=== PATIENT | male | born 1970 | race African-American/Black ===

== ENCOUNTER 2024-08-23 08:05 | Emergency (ER) | payer OTHER ==
[~2024-08-23] VITALS: Ht 177.8 cm; Wt 68.1 kg
--- NOTE | 2024-08-23 08:52 | ED.PDOC ---
Back pain HPI HPI Comments 54 y.o male presents to the ED for a chief complaint of muscle pain associated with spasms. Patient reports he was doing some yard work with his son, was lifting bags of leaves when symptoms presented, localized to the lower back/flank, abdomen region. EMS reports giving patient 50mcg of Fentanyl and Zofran due to ongoing nausea and 4 episodes of non bloody emesis this morning. Patient reports having a normal bowel movement this morning.EMS reports patient is currently being treated with a left foot infection as well. He has a medical history of DM, HTN, and hyperlipidemia. Chief Complaint: Body Pain Time Seen by MD: 08:18 Reviewed Notes: Nurses Notes, Public Speaking Teacher Notes, Medications, Allergies Allergies: Coded Allergies: NO KNOWN ALLERGIES (Unverified , 08/23/24) Information Source: Patient, Emergency Med Personnel Mode of Arrival: EMS Timing: Hours Duration: Since onset Severity: Moderate Quality: Sharp Onset: Lifing History of: Other Past Medical History PAST MEDICAL HISTORY: DM, High Lipids, HTN Past Medical History (Other): left foot infection Surgical History: Denies all surgeries Family History Family History: Reviewed,noncontributory to illness Social History Smoker: Non-Smoker Alcohol: Denies ETOH Use Drugs: Denies Drug Use Lives In: Home Constitutional: denies: chills, diaphoresis, fatigue, fever, malaise, sweats, weakness, others EENTM: denies: blurred vision, double vision, ear bleeding, ear discharge, ear drainage, ear pain, ear ringing, eye pain, eye redness, hearing loss, mouth pain, mouth swelling, nasal discharge, nose bleeding, nose congestion, nose pain, photophobia, tearing, throat pain, throat swelling, voice changes, others Respiratory: denies: cough, hemoptysis, orthopnea, SOB at rest, shortness of breath, SOB with excertion, stridor, wheezing, others Cardiovascular: denies: chest pain, dizzy spells, diaphoresis, Dyspnea on exertion, edema, irregular heart beat, left arm pain, lightheadedness, palpitations, PND, syncope, others Gastrointestinal: denies: abdomen distended, abdominal pain, blood streaked bowels, constipated, diarrhea, dysphagia, difficulty swallowing, hematemesis, melena, nausea, poor appetite, poor fluid intake, rectal bleeding, rectal pain, vomiting, others Genitourinary: denies: burning, dysuria, flank pain, frequency, hematuria, incontinence, penile discharge, penile sore, pain, testicle pain, testicle swelling, urgency, others Neurological: denies: dizziness, fainting, headache, left sided numbness, left sided weakness, numbness, paresthesia, pre-existing deficit, right sided numbness, right sided weakness, seizure, speech problems, tingling, tremors, weakness, others Musculoskeletal: reports: muscle pain; denies: back pain, gout, joint pain, joint swelling, muscle stiffness, neck pain, others Integumetry: denies: bruises, change in color, change in hair/nails, dryness, laceration, lesions, lumps, rash, wounds, others Allergic/Immunocompromised: denies: Difficulty Healing, Frequent Infections, Hives, Itching, others Hematologic/Lymphatic: denies: anemia, blood clots, easy bleeding, easy bruising, swollen glands, others Endocrine: denies: excessive hunger, excessive sweating, excessive thirst, excessive urination, flushing, intolerance to cold, intolerance to heat, unexplained weight gain, unexplained weight loss, others Psychiatric: denies: anxiety, bipolar disorder, depression, hopeless, panic disorder, schizophrenia, sleepless, suicidal, others All Other Systems: Reviewed and Negative Physical Exam General Appearance: Mild Distress, Normal HEENT: Normal ENT Inspection, Pharynx Normal, TMs Normal Neck: Full Range of Motion, Non-Tender, Normal, Normal Inspection Respiratory: Chest Non-Tender, Lungs Clear, No Accessory Muscle Use, No Respiratory Distress, Normal Breath Sounds Cardiovascular: No Edema, No JVD, No Murmur, No Gallop, Normal Peripheral Pulses, Regular Rate/Rhythm Breast Exam: Deferred Gastrointestinal: Diffuse, Tenderness (mild ), Other (No rebound, no pulsating mass ) Genitalia: Deferred Pelvic: Deferred Rectal: Deferred Extremities: No calf tenderness, Normal capillary refill, Normal inspection, Normal range of motion, Non-tender, No pedal edema Musculoskeletal : Apperance: Normal Neurologic: Alert, procurement inspector II-XII nml as Tested, No Motor Deficits, Normal Affect, Normal Mood, No Sensory Deficits Cerebellar Function: Normal Reflexes: Normal Skin: Dry, Normal Color, Warm Lymphatic: No Adenopathy Was a procedure done? Was a procedure done?: No Back Pain Differential Dx Differential Diagnosis: Bowel Obstruction, Cholelithiasis, Fracture, Musculoskeletal Pain, Pancreatitis, Pyelonephritis, Urinary Tract Infection, Urolithiasis X-Ray, Labs, Meds, VS Vital Signs Date Time Temp Pulse Resp B/P (MAP) Pulse Ox O2 Delivery O2 Flow Rate FiO2 08/23/24 09:56 89 16 161/76 08/23/24 09:50 99.5 89 16 161/76 (104) 100 99.5 08/23/24 09:50 89 16 100 Nasal Cannula* 2 28 08/23/24 09:24 90 16 150/73 08/23/24 08:14 98.6 98 18 158/84 (108) 99 08/23/24 08:09 82 Lab Test 08/23/24 08:37 Range/Units White Blood Count 12.2 H 4.4-10.8 10^3/uL Red Blood Count 4.42 L 4.5-5.90 10^6/uL Hemoglobin 13.1 L 13.5-17.5 g/dL Hematocrit 39.5 L 41.0-53.0 % Mean Corpuscular Volume 89.4 80.0-100.0 fL Mean Corpuscular Hemoglobin 29.6 28.0-32.0 pg Mean Corpuscular Hemoglobin Concent 33.2 32.0-36.0 g/dL Red Cell Distribution Width 13.6 11.8-14.3 % Platelet Count 219 140-450 10^3/uL Mean Platelet Volume 8.9 6.9-10.8 fL Neutrophils (%) (Auto) 87.6 H 37.0-80.0 % Lymphocytes (%) (Auto) 6.0 L 10.0-50.0 % Monocytes (%) (Auto) 5.5 0.0-12.0 % Eosinophils (%) (Auto) 0.6 0.0-7.0 % Basophils (%) (Auto) 0.3 0.0-2.0 % Neutrophils # (Auto) 10.7 H 1.6-8.6 10 ^3/uL Lymphocytes # (Auto) 0.7 0.4-5.4 10 ^3/uL Monocytes # (Auto) 0.7 0-1.3 10 ^3/uL Eosinophils # (Auto) 0.1 0-0.8 10 ^3/uL Basophils # (Auto) 0 0-0.2 10 ^3/uL Nucleated Red Blood Cells 0.0 % Sodium Level 134 L 136-145 mmol/L Potassium Level 4.3 3.5-5.1 mmol/L Chloride Level 97 L 98-107 mmol/L Carbon Dioxide Level 25 20-31 mmol/L Anion Gap 12 5-15 Blood Urea Nitrogen 22 9-23 mg/dL Creatinine 1.80 H 0.700-1.30 mg/dL Glomerular Filtration Rate Calc 44 >90 mL/min BUN/Creatinine Ratio 12.2 10.0-20.0 Serum Glucose 370 H 74-106 mg/dL Calcium Level 9.4 8.7-10.4 mg/dL Total Bilirubin 6.1 H 0.2-1.0 mg/dL Aspartate Amino Transferase (AST) 53 H 13-40 U/L Alanine Aminotransferase (ALT) 158 H 7-40 U/L Alkaline Phosphatase 379 H 46-116 U/L Total Protein 7.7 5.7-8.2 g/dL Albumin 4.1 3.2-4.8 g/dL Lipase 34 12-53 U/L Current Medications Medications (Trade) Dose Ordered Sig/Pierre Route Start Time Stop Time Status Last Admin Morphine Sulfate 4 mg ONCE ONCE IV 08/23/24 08:30 08/23/24 08:31 DC 08/23/24 09:24 Ondansetron HCl (Zofran) 4 mg ONCE ONCE IV 08/23/24 08:30 08/23/24 08:31 DC 08/23/24 09:25 [place] [id number] Ph: [phone] DIAGNOSTIC IMAGING Diagnostic Imaging Report : [id number] Signed PATIENT: ALLI SALCIDO ACCT: [id number] UNIT: [id number] : 1970 LOC: ER ROOM / BED: / AGE / SEX: 54 / M ADM STATUS: REG ER SERVICE 1 ORDERING PHYSICIAN: ANNIE MACIAS MD PROCEDURE(s): ABPL - CT AB PEL WO CON-NO ORAL OR IV REASON: pain ORDER NUMBER(s): [id number], ACCESSION NUMBER(s): [id number] Exam: CT CT AB PEL WO CON-NO ORAL OR IV History: pain Comparison Study: None Technique: Multidetector spiral CT of the abdomen was performed from lung bases to pubic symphysis. Imaging was performed without IV contrast. Axial, coronal and sagittal multiplanar reformats were obtained from the axial data set by the technologist. Radiation Dose : 1. Abdomen/Pelvis: CTDIvol 5.8 mGy, DLP 358.53 mGy*cm. Findings: Evaluation of solid organs is limited due to lack of intravenous contrast use. Lung Bases: Cardiomegaly. Coronary artery calcifications. Vascular calcifications of the aorta. Liver: The liver is normal in size. No focal lesions. Gallbladder and Biliary Tree: Unremarkable Spleen: Unremarkable Pancreas: The pancreas is grossly normal in appearance. Adrenal Glands: Unremarkable Kidneys: Kidneys are grossly normal without calculi or hydronephrosis. Bladder: Mildly distended urinary bladder. Bowel: The stomach is grossly normal in appearance. Small bowel and colon are normal in caliber and distribution. The appendix is not visualized; however, no secondary findings of acute appendicitis identified. Ascites: Absent Lymphadenopathy: No mesenteric, retroperitoneal or periportal lymphadenopathy. Abdominal Wall and Mesentery: Unremarkable. Vasculature: The visualized abdominal aorta is normal in size and caliber. Evaluation of abdominal and pelvic vessels is limited due to lack of intravenous contrast. Pelvic Organs: Prostate is enlarged. Musculoskeletal: No aggressive focal bony lesions, acute fractures or dislocation. IMPRESSION: No acute abdominal or pelvic findings. Radiation optimization: All CT scans at this facility use at least one of these dose optimization techniques: automated exposure control mA and/or kV adju stment per patient size (includes targeted exams where dose is matched to clinical indication) or iterative reconstruction. ATED BY: CHRIS TROY MD DICTATED DATE/TIME: 08/23/24906 SIGNED BY: CHRIS TROY MD SIGNED DATE/TIME: 08/23/24906 CC: Time of 1ST Reevaluation: 08:24 Reevaluation 1ST: Unchanged Time of 2ND Reevaluation: 11:19 Reevaluation 2ND: Improved Patient Education/Counseling: Diagnosis, Treatment, Prognosis Family Education/Counseling: No Family Present Additional Information Ordered Test- CBC, CMP, Urine analysis, Abdomen and Pelvis CT without contrast Reviewed Results- CT, Lipase, cbc, chemistry, ua Independent Hx- Paramedics, pt's Discuss Tx/Results- Patient , medical personnel, pt's CT ABD/Pelvis: IMPRESSION: reviewed and agree with radiology: No acute abdominal or pelvic findings. pt is feeling better, he has myalgia, but no findings of any infections. his abdomen is soft, and ct is unremarkable. i will prescribe pain control for him. he is stable to return for recheck in 8 hours Departure 1 Departure Time of Disposition: 11:21 Impression: Primary Impression: Abdominal pain Qualified Codes: R10.9 - Unspecified abdominal pain Additional Impression: Nausea & vomiting Qualified Codes: R11.2 - Nausea with vomiting, unspecified Disposition: HOME / SELF CARE / HOMELESS Condition: Good e-Prescriptions Ondansetron Odt 4MG Tab (ZOFRAN PO) 4 Mg Tb 4 MG PO Q6HP PRN for 2 Days, #8 TAB ODT TAB-DISSOLVE IN MOUTH, THEN SWALLOW Prov: ANNIE MACIAS MD 08/23/24 Hydrocodone-Acetaminophen (Hydrocodone Bitartrate/AC 5-325 mg) 1 Tab Tab 1 TAB PO Q6HP PRN for 2 Days, #8 TAB Prov: ANNIE MACIAS MD 08/23/24 Discharged With: Spouse Critical Care Note Critical Care Time?: Yes (55 min-critical care time only) Critical care comment: due to concerns for sudden deterioration of pt's condition, the patient's care required my most attentive level and highest readiness to intervene. i assessed him, ordered the appropriate orders, reviewed the results, and reassessed the patient's response, formulated a care plan, communicated with medical personnel and consultants. total time include at least 50% face-face interaction and does not include any procedures Stability Stability form required: No I personally scribed for ANNIE MACIAS MD ([email or web address]) on 08/23/24 at 08:52. Electronically submitted by Molly Nix ([facility]). I personally scribed for ANNIE MACIAS MD ([email or web address]) on 08/23/24 at 09:22. Electronically submitted by Molly Nix ([facility]). I personally scribed for ANNIE MACIAS MD ([email or web address]) on 08/23/24 at 10:25. Electronically submitted by Molly Nix ([facility]). I personally scribed for ANNIE MACIAS MD ([facility]) on 08/23/24 at 10:46. Electronically submitted by Molly Nix ([facility]). I personally scribed for ANNIE MACIAS MD ([facility]) on 08/23/24 at 11:13. Electronically submitted by Molly Nix ([facility]). ANNIE MACIAS MD Aug 23, 2024 08:52
[2024-08-23 08:57] LABS: Basophils # (auto) 0 10 ^3/uL (0-0.2); Basophils % (auto) 0.3 % (0.0-2.0); Eosinophils # (auto) 0.1 10 ^3/uL (0-0.8); Eosinophils % (auto) 0.6 % (0.0-7.0); Hematocrit 39.5 % (41.0-53.0); Hemoglobin 13.1 g/dL (13.5-17.5); Lymphocytes # (auto) 0.7 10 ^3/uL (0.4-5.4); Mean Corpuscular Hemoglobin 29.6 pg (28.0-32.0); Mean Corpuscular Hgb Conc. 33.2 g/dL (32.0-36.0); Mean Corpuscular Volume 89.4 fL (80.0-100.0); Monocytes # (auto) 0.7 10 ^3/uL (0-1.3); Monocytes % (auto) 5.5 % (0.0-12.0); Neutrophils # (auto) 10.7 10 ^3/uL (1.6-8.6); Neutrophils % (auto) 87.6 % (37.0-80.0); Platelet Count (auto) 219 10^3/uL (140-450); Red Blood Cells 4.42 10^6/uL (4.5-5.90); Red Cell Distribution Width 13.6 % (11.8-14.3); White Blood Cell 12.2 10^3/uL (4.4-10.8)
--- NOTE | 2024-08-23 09:11 | DVH ---
Exam: CT CT AB PEL WO CON-NO ORAL OR IV History: pain Comparison Study: None Technique: Multidetector spiral CT of the abdomen was performed from lung bases to pubic symphysis. Imaging was performed without IV contrast. Axial, coronal and sagittal multiplanar reformats were ob tained from the axial data set by the technologist. Radiation Dose : 1. Abdomen/Pelvis: CTDIvol 5.8 mGy, DLP 358.53 mGy*cm. Findings: Evaluation of solid organs is limited due to lack of intravenous contrast use. Lung Bases: Cardiomegaly. Coronary artery calcifications. Vascular calcifications of the aorta. Liver: The liver is normal in size. No focal lesions. Gallbladder and Biliary Tree: Unremarkable Spleen: Unremarkable Pancreas: The pancreas is grossly normal in appearance. Adrenal Glands: Unremarkable Kidneys: Kidneys are grossly normal without calculi or hydronephrosis. Bladder: Mildly distended urinary bladder. Bowel: The stomach is grossly normal in appearance. Small bowel and colon are normal in caliber and d istribution. The appendix is not visualized; however, no secondary findings of acute appendicitis id entified. Ascites: Absent Lymphadenopathy: No mesenteric, retroperitoneal or periportal lymphadenopathy. Abdominal Wall and Mesentery: Unremarkable. Vasculature: The visualized abdominal aorta is normal in size and caliber. Evaluation of abdominal a nd pelvic vessels is limited due to lack of intravenous contrast. Pelvic Organs: Prostate is enlarged. Musculoskeletal: No aggressive focal bony lesions, acute fractures or dislocation. IMPRESSION: No acute abdominal or pelvic findings. Radiation optimization: All CT scans at this facility use at least one of these dose optimization nik hniques: automated exposure control mA and/or kV adjustment per patient size (includes targeted exam s where dose is matched to clinical indication) or iterative reconstruction.
[2024-08-23 09:21] LABS: Albumin 4.1 g/dL (3.2-4.8); Anion Gap 12 (5-15); BUN/Creatinine Ratio 12.2 (10.0-20.0); Blood Urea Nitrogen 22 mg/dL (9-23); Calcium 9.4 mg/dL (8.7-10.4); Carbon Dioxide 25 mmol/L (20-31); Potassium 4.3 mmol/L (3.5-5.1); Total Protein 7.7 g/dL (5.7-8.2)
[2024-08-23 09:22] LABS: Alanine Aminotransferase 158 U/L (7-40); Alkaline Phosphatase 379 U/L (46-116); Aspartate Aminotransferase 53 U/L (13-40); Bilirubin, Total 6.1 mg/dL (0.2-1.0); Chloride 97 mmol/L (98-107); Glucose 370 mg/dL (74-106); Sodium 134 mmol/L (136-145)
[2024-08-23] MEDS: MORPHINE SULFATE 4 MG/ML SYR/VIAL IV ONE (09:24)
[2024-08-23] MEDS: ONDANSETRON HCL 4 MG/2 ML VIAL IV ONE (09:25)
[2024-08-23 09:50] VITALS: PULSE 89; RESP 16; TEMP 99.5; O2SAT 100
[2024-08-23 11:00] LABS: Lipase 34 U/L (12-53)
[2024-08-23] MEDS: KETOROLAC TROMETH 30 MG/ML 1ML VIAL IV ONE (11:23)
[2024-08-23] MEDS ORDERED: HYDR-4902 PO (11:25)
[2024-08-23] MEDS ORDERED: ZOFR4T PO (11:25)
[2024-08-23] MEDS: fentaNYL CITRATE 100 MCG/2 ML VL IV ONE (11:59)
[2024-08-23 12:00] VITALS: BP 129/64; PULSE 78; RESP 19; O2SAT 99
--- NOTE | 2024-08-25 10:45 | ECG ---
[facility] Test Date: 2024-08-23 Test Time: 08:09:56 Pat Name: ALLI SALCIDO Department: ER Room: Gender: M Development Writer: DIANA : 1970 Requested By: ANNIE MACIAS Order Number: [id number] Reading MD: Esdras Marmolejo Measurements Intervals [place] Rate: 82 P: 67 IA: 132 QRS: -48 QRSD: 103 T: 48 QT: 393 QTc: 459 Interpretive Statements Sinus rhythm LAD, consider left anterior fascicular block Left ventricular hypertrophy Electronically Signed On 08-29-2024 13:32:56 PST by Esdras Marmolejo Please click the below link to view image of tracing.
== END 2024-08-23 13:03 | disposition home or self-care (01) ==
LOC: EDBD 08:05 → ER 08:05
DX: R10.9 Unspecified abdominal pain (principal); R11.2 Nausea with vomiting, unspecified; E11.9 Type 2 diabetes mellitus without complications; E78.5 Hyperlipidemia, unspecified; I10 Essential (primary) hypertension
CPT/HCPCS: 36415; 74176; 80053; 83690; 85025; 93005; 96374; 96375; 99285; J1885; J2270; J2405; J3010